=== PATIENT | female | born 1950 | race Caucasian/White ===

== ENCOUNTER 2020-11-09 09:55 | Emergency (ER) | payer MEDICARE, OTHER ==
[~2020-11-09] VITALS: Ht 165.1 cm; Wt 90.7 kg
[2020-11-09] MEDS ORDERED: LATANOPROST 0.2.5 ML OPHTHALMIC (10:12)
[2020-11-09 10:41] LABS: ABSOLUTE LYMPHOCYTES 0.7 thou/uL (0.8-5.3); ABSOLUTE MONOCYTES 0.3 thou/uL (0.0-1.2); ABSOLUTE NEUTROPHILS 2.8 thou/uL (1.6-8.1); BASOPHILS 0.5 %; EOSINOPHILS 0.1 %; HEMATOCRIT 38.3 % (37.0-47.0); HEMOGLOBIN 13.5 gm/dL (12.0-15.0); LYMPHOCYTES 17.8 %; MCH 28.8 pg (26.0-34.0); MCHC 35.2 g/dL (28.0-37.0); MCV 81.9 fL (80.0-100.0); MONOCYTES 7.8 %; MPV 7.4 fl. (7.2-11.1); NUCLEATED RBCS 0 /100WBC; PLATELET COUNT* 177 thou/uL (150-400); POLYS 73.8 %; RBC 4.68 mil/uL (4.20-5.00); RDW-CV 13.6 % (10.5-14.5); WBC 3.7 thou/uL (4.0-11.0)
[2020-11-09 10:50] LABS: CALCIUM 8.6 mg/dL (8.5-10.1); CREATININE 0.8 mg/dL (0.6-1.3); POTASSIUM 3.2 mmol/L (3.5-5.1)
[2020-11-09 10:55] LABS: ALBUMIN 3.8 g/dL (3.4-5.0); TOTAL BILIRUBIN 0.7 mg/dL (<0.1-1.0)
[2020-11-09 11:59] VITALS: BP 115/64
--- NOTE | 2020-11-10 14:05 | EKG ---
[place] [address] ELECTROCARDIOGRAM REPORT Name: RUPINDER HANCOCK Room: [facility]#: [id number] Admission: 11/09/20 Attend Phys: Discharge: 11/09/20 Date of : 48 Date of Service: 11/09/20 1005 Report #: [id number] THIS REPORT FOR: //name// [facility] ED Test Date: 2020-11-09 Test Time: 10:05:21 Pat Name: RUPINDER HANCOCK Department: Room: Gender: F [employer]: : 1950 Requested By: Jere East Order Number: [id number] MD: Evan Tilley Measurements Intervals [place] Rate: 88 P: 78 PA: 142 QRS: 48 QRSD: 101 T: 35 QT: 362 QTc: 438 Interpretive Statements Sinus rhythm Minimal ST depression, inferior leads No previous ECG available for comparison Electronically Signed On 11-10-2020 14:04:51 CDT by Evan Tilley [email or web address] <ELECTRONICALLY SIGNED> By: Evan Tilley MD, [facility] 11/10/20 1404 1005 1005 Evan Tilley MD, FACC /EPI
== END 2020-11-09 12:00 | disposition home or self-care (01) ==
LOC: M.ERS 09:55
PROVIDERS: Emergency Medicine
DX: U07.1 COVID-19 (principal); Z79.899 Other long term (current) drug therapy